=== PATIENT | male | born 1975 | race Caucasian/White ===

== ENCOUNTER 2017-06-15 02:31 | Inpatient (IN) | payer MEDICAID ==
--- NOTE | 2017-06-15 02:33 | EDPHY ---
H & P HPI/ROS: HPI CHIEF COMPLAINT: Facial swelling, pain, redness, neck swelling and pain HISTORY OF PRESENT ILLNESS: This patient is a 41-year-old male, denies having diabetes, he presents emergency room with right lateral neck swelling pain redness and drainage that appears to be in infection x3 days progressively getting worse. Additionally the patient has upper lip swelling pain and redness , that seems to stem from the nostril opening on the right. There is induration present tenderness and redness and warmth. Patient reports to me his upper lip started swelling and had facial pain this evening. Endorses fever subjectively. Chills. He decided come to the emergency room this evening due to increasing pain. Past Medical History: Hypertension Past Surgical History: No recent surgery Social History: Denies daily use of drugs alcohol tobacco products. denies IV drug use. Family History: Noncontributory ROS REVIEW OF SYSTEMS: A comprehensive 10 point review of systems is otherwise negative aside from elements mentioned in the history of present illness. Exam Constitutional triage nursing summary reviewed, vital signs reviewed, awake/ alert. Eyes normal conjunctivae and sclera, EOMI, PERRLA. HENT neck: Right lateral neck swelling and pain. Obivous cellulitis with some purulent drainage. Induration present. No fluctuance. Possible there is a deep space abscess FACE: Upper lip swelling. Indurated. Tender palpation over the right nostril opening redness and warmth. Oropharynx is no Abdirahman's but he does have poor dentition. moist mucus membranes, no epistaxis, neck supple/ no meningismus, no raccoon eyes. Respiratory clear to auscultation bilaterally, normal breath sounds, no respiratory distress, no wheezing. Cardiovascular rate normal, regular rhythm, no murmur, no edema, distal pulses normal. Gastrointestinal soft, non-tender, no rebound, no guarding, normal bowel sounds, no distension, no pulsatile mass. Genitourinary no CVA tenderness. Musculoskeletal no midline vertebral tenderness, full range of motion, no calf swelling, no tenderness of extremities, no meningismus, good pulses, neurovascularly intact. Skin cellulitis present on neck and face. Neurologic awake, alert and oriented x 3, AAOx3, moves all 4 extremities equally, motor intact, sensory intact, CN II-XII intact, normal cerebellar, normal vision, normal speech. Psychiatric normal mood/affect. Heme/Lymph/Immune no lymphadenopathy. Differential Diagnosis: Includes but is not limited to facial cellulitis, MRSA infection, strep infection, staph infection, necrotizing fasciitis, deep space neck infection, sepsis, neck abscess Medical Decision Making: Plan for this patient IV establishment with IV fluid bolus, blood cultures, lactic acid, inflammatory markers, IV dose of vancomycin. IV pain medicine. Re-evaluation: CT neck with IV contrast and CT maxillofacial with IV contrast shows extensive cellulitis of the face and neck. No fluid collection or drainable abscess. Given this patient's CT scan findings, leukocytosis, and external exam facial swelling erythema warmth and tenderness will be admitted to the hospital for facial cellulitis. IV vancomycin has been given. He declined IV Dilaudid for pain control he did receive a Percocet pill. Blood cultures been sent. As well as a wound culture of the right neck. Will consult the hospitalist service for admission. His oropharynx not swelling. He does not have any tongue swelling. Agrees on admission the hospital. Source: Patient - Medical/Surgical History Hx Asthma: No Hx Chronic Respiratory Disease: No Hx Diabetes: No Hx Cardiac Disease: No Hx Renal Disease: No Hx Cirrhosis: No Hx Alcoholism: No Hx HIV/AIDS: No Hx Splenectomy or Spleen Trauma: No Other PMH: Appendix surgery 2004, Right Thumb Surgery - Social History Smoking Status: Never smoked Constitutional: Initial Vital Signs Temperature (C) 37.8 C 06/15/17 02:35 Heart Rate 106 H 06/15/17 02:35 Respiratory Rate 16 06/15/17 02:35 Blood Pressure 153/109 H 06/15/17 02:35 O2 Sat (%) 94 06/15/17 02:35 O2 Delivery Mode Room Air Allergies/Adverse Reactions: Penicillins Allergy (Unknown, Verified 06/15/17 02:39) Home Medications: Medication Instructions Recorded Acetaminophen [Tylenol 325mg (*)] 325 mg PO DAILY PRN 06/15/17 Hydrochlorothiazide [HCTZ (*)] 25 mg PO DAILY 06/15/17 Lisinopril [Zestril 40 mg (*)] 40 mg PO DAILY 06/15/17 Medical Decision Making - Data Points Laboratory Results: Laboratory Results 06/15/17 03:00 06/15/17 03:00 Microbiology Results: MICROBIOLOGY 06/15/17 03:15 Neck - Swab Gram Stain - Final 06/15/17 03:15 Neck - Swab Wound Culture - Preliminary MRSA 06/15/17 03:15 Blood Blood Culture - Preliminary 06/15/17 03:00 Blood Blood Culture - Preliminary Medications Given: Hydrocodone Bitart/Acetaminophen ([place] 5/325) 1 - 2 tab PO Q4HRS PRN PRN Reason: Pain, Moderate Able to Take PO Stop: 06/25/17 04:31 Last Admin: 06/16/17 20:41 Dose: 2 tab Diphenhydramine HCl (Benadryl) 25 - 50 mg PO Q6HRS PRN PRN Reason: Itching Stop: 12/12/17 04:31 Last Admin: 06/15/17 08:46 Dose: 25 mg Hydrochlorothiazide (Hydrochlorothiazide) 25 mg PO DAILY [facility] Stop: 12/12/17 13:29 Last Admin: 06/16/17 09:12 Dose: 25 mg Vancomycin HCl 1.5 gm/ (Dextrose) 250 mls @ 166.667 mls/hr IV Q12H [facility] Stop: 07/15/17 15:59 Last Admin: 06/16/17 16:11 Dose: 250 mls Ketorolac Tromethamine (Toradol) 15 mg IVP Q6HRS [facility] Stop: 06/20/17 17:59 Last Admin: 06/17/17 02:02 Dose: 15 mg Lisinopril (Zestril) 40 mg PO DAILY [facility] Stop: 12/12/17 13:29 Last Admin: 06/16/17 09:12 Dose: 40 mg Lorazepam (Ativan) 0.5 - 1 mg PO Q6HRS PRN PRN Reason: Anxiety Stop: 12/12/17 05:11 Last Admin: 06/15/17 06:32 Dose: 0.5 mg Sodium Chloride ([place]) 1 spray [place] PRN PRN PRN Reason: Dry Nose Stop: 12/12/17 13:18 Last Admin: 06/15/17 13:44 Dose: 1 spr Discontinued Medications Hydrocodone Bitart/Acetaminophen ([place] 5/325) 1 tab PO EDNOW ONE Stop: 06/15/17 03:26 Last Admin: 06/15/17 03:26 Dose: 1 tab Hydromorphone HCl (Dilaudid) 1 mg IVP EDNOW ONE Stop: 06/15/17 02:58 Last Admin: 06/15/17 03:41 Dose: Not Given Sodium Chloride (Ns) 1,000 mls @ 0 mls/hr IV ONCE ONE PRN Reason: Wide Open Stop: 06/15/17 02:52 Last Admin: 06/15/17 03:26 Dose: 1,000 mls Vancomycin HCl 1 gm/ Dextrose 250 mls @ 250 mls/hr IV EDNOW ONE Stop: 06/15/17 04:29 Last Admin: 06/15/17 03:43 Dose: 250 mls Vancomycin HCl 500 mg/ (Dextrose) 100 mls @ 100 mls/hr IV ONCE ONE Stop: 06/15/17 09:29 Last Admin: 06/15/17 08:47 Dose: 100 mls Departure - Departure Disposition: [facility] Inpatient Acute Clinical Impression: Facial cellulitis, Cellulitis, neck Condition: Fair
[2017-06-15] MEDS ORDERED: VANCOMYCIN HCL/NORMAL SALINE 250 ML IV ONE (02:51)
[2017-06-15] MEDS ORDERED: NS 1,000 ML IV ONE (02:51)
[2017-06-15] MEDS ORDERED: HYDROmorphONE/DILAUDID 1 MG/ML INJ IVP ONE (02:57)
[2017-06-15 03:18] LABS: % IMMATURE GRANULYOCYTES 0.3 % (0.0-1.1); ABSOLUTE IMMATURE GRANULOCYTES 0.04 10^3/uL (0.00-0.10); ADD DIFF? NO; ADD MORPH? NO; ADD SCAN? NO; ATYPICAL LYMPHOCYTE FLAG 0 (0-99); FRAGMENT RBC FLAG 0 (0-99); HEMATOCRIT 45.3 % (40.0-51.0); HEMOGLOBIN 15.7 g/dL (13.7-17.5); LEFT SHIFT FLG 0 (0-99); LIPEMIA HEMOLYSIS FLAG 90 (0-99); MEAN CELL HEMOGLOBIN 30.4 pg (27.9-34.1); MEAN CELL HEMOGLOBIN CONCENTR. 34.7 g/dL (32.4-36.7); MEAN CELL VOLUME 87.6 fL (81.5-99.8); MEAN PLATELET VOLUME 8.9 fL (8.7-11.7); PLATELET CLUMPS FLAG 0 (0-99); PLATELET COUNT 232 10^3/uL (150-400); RED BLOOD CELL COUNT 5.17 10^6/uL (4.40-6.38); RED CELL DISTRIBUTION WIDTH 12.5 % (11.5-15.2)
[2017-06-15] MEDS ORDERED: HYDROCODONE/APAP 5/325 TAB ONE (03:22)
[2017-06-15] MEDS ORDERED: HYDROCODONE/APAP 5/325 TAB PO ONE (03:25)
[2017-06-15] MEDS ORDERED: VANCOMYCIN 1 GM in D5W 250 ML IV ONE (03:30)
[2017-06-15 03:37] LABS: ANION GAP 13 mEq/L (8-16); C-REACTIVE PROTEIN 56.4 mg/L (<10.0); CALCIUM 9.4 mg/dL (8.5-10.4); CARBON DIOXIDE 25 mEq/l (22-31); CHLORIDE 103 mEq/L (97-110); CREATININE 0.8 mg/dL (0.7-1.3); GLOMERULAR FILTRATION RATE > 60; GLUCOSE 129 mg/dL (70-100); POTASSIUM 3.7 mEq/L (3.5-5.2); SODIUM 141 mEq/L (134-144)
[2017-06-15 03:41] LABS: SEDIMENTATION RATE 10 MM/HR (0-15)
[2017-06-15] MEDS ORDERED: IOPAMIDOL (ISOVUE-300) 100 ML BTL ONE (03:44)
[2017-06-15] MEDS ORDERED: diphenhydrAMINE 25 MG CAP PO PRN (04:32)
[2017-06-15] MEDS ORDERED: ACETAMINOPHEN 325 MG TAB PO PRN (04:32)
[2017-06-15] MEDS ORDERED: ONDANSETRON 4 MG/2 ML VIAL IVP PRN (04:32)
[2017-06-15] MEDS ORDERED: NS 1,000 ML IV SCH (04:45)
[2017-06-15] MEDS ORDERED: LORazepam 0.5 MG TAB PO PRN (05:12)
--- NOTE | 2017-06-15 05:25 | PDGENHP ---
History and Physical - Chief Complaint face and neck pain/swelling - History of Present Illness Source - patient provides history and appears reliable. EMR reviewed and case discussed with ED provider. HPI - 41 yo M with pmx significant for HTN, chronic back pain with herniated lumbar disks who presents to the ED this evening with complaints of right neck pain/redness/swelling x 3 days and right facial pain/redness/swelling x 1 day. Patient denies any fevers but has had some chills at home. He denies any injury but has a hx of folliculitis and facial cellulitis multiple times in the past. on his right mid lateral neck he reports a folliculitis close to where he shaves. he has had some drainage from the neck wound. He is feeling pain and pressure under upper part of his right nare and swelling of his upper lip. He reports previous abscesses 2/2 Staph but does not recall if they were MRSA. Patient denies any tongue swelling, shortness of breath. He is on lisinopril but no other c/o edema around eyes. Patient did not seek out evaluation outpatient as he reports "he doesn't like doctors." History Information - Allergies/Home Medication List Allergies/Adverse Reactions: Penicillins Allergy (Unknown, Verified 06/15/17 02:39) Home Medications: Lisinopril/Hctz 10/12.5 mg 07/12/15 [Last Taken Unknown] I have personally reviewed and updated: family history, medical history, social history, surgical history - Past Medical History degenerative disc disease (lumbar herniated disc/chronic back pain), hypertension - Surgical History Additional surgical history: appy. right thumb - Family History Negative for: diabetes type II, CAD, hypertension - Social History Smoking Status: Never smoked Alcohol Use: Occasionally Drug Use: None Additional social history: Lives alone. COR - FULL. Patient declines to select a proxy if needed. Review of Systems Review of Systems: ROS: 10pt was reviewed & negative except for what was stated in HPI & below Constitutional: Reports: chills. Denies: fever, weakness EENMT: Reports: other (pain/swelling right nare). Denies: blurred vision, eye pain, nose congestion, sore throat Cardiac: Reports: no symptoms. Denies: chest pain, edema, palpitations Respiratory: Reports: no symptoms. Denies: cough, shortness of breath Gastrointestinal: Reports: no symptoms. Denies: vomitting, diarrhea, nausea Genitourinary: Reports: no symptoms. Denies: dysuria, hematuria Muscolosketal: Reports: back pain (chronic back pain). Denies: muscle pain Skin: Reports: other (cellulitis right neck/face) Neurological: Reports: numbness (minimal on his lip). Denies: anxiety, depressed, weakness Immunologic/Allergy: Reports: other (allergic to insect bites. ). Denies: food allergy Physical Exam Physical Exam: Selected Entries 06/15/17 02:35 Heart Rate 106 H Respiratory 16 Rate O2 Sat (%) 94 Temperature (C) 37.8 C Blood Pressure 153/109 H Mean Arterial 123 H Pressure (MAP) O2 Delivery Room Air Mode Temperature Oral Source Temp Pulse Resp BP Pulse Ox 37 C 76 18 107/68 95 06/15/17 04:00 06/15/17 04:00 06/15/17 04:00 06/15/17 04:00 06/15/17 04:00 Constitutional: no apparent distress, obese, uncomfortable Eyes: PERRL (decreased reactivity to light bilaterally but symettric), anicteric sclera, EOMI, No scleral injection Ears, Nose, Mouth, Throat: moist mucous membranes, poor dentition (fair condition), dry mucous membranes, other (right lateral neck with scabbed area erythematous. ttp. no active drainage. upper lip is edematous. pt right nare erythematous/edematous. ) Cardiovascular: regular rate and rhythym, no murmur, rub, or gallop, No systolic murmur, No edema Peripheral Pulses: 2+: dorsalis-pedis (R), dorsalis-pedis (L) Respiratory: no respiratory distress, no rales or rhonchi, clear to auscultation Gastrointestinal: normoactive bowel sounds, soft, non-tender abdomen, no palpable masses, other (obese) Genitourinary: no bladder tenderness, No ogden in urethra Skin: warm, normal color, no fluctuance, erythema, induration, other (right medial AC with indurated/circular area pt identifies as musquito bite. nonfluctuant.) Musculoskeletal: full muscle strength, no muscle tenderness, other (moves all extremities. sits up independently) Neurologic: AAOx3, sensation intact bilaterally, other (grossly nonfocal exam. ) , No weakness Psychiatric: not encephalopathic, thought process linear, anxious, flat affect, other (patient minimizes need for outpatient medical care but understands he should seek earlier intervention if cellulitis occurs again), No depressed, No poor insight, No poor judgement, No poor memory Lab Data & Imaging Review 06/15/17 03:00 06/15/17 03:00 WBC 15.35 10^3/uL (3.80-9.50) H 06/15/17 03:00 RBC 5.17 10^6/uL (4.40-6.38) 06/15/17 03:00 Hgb 15.7 g/dL (13.7-17.5) 06/15/17 03:00 Hct 45.3 % (40.0-51.0) 06/15/17 03:00 MCV 87.6 fL (81.5-99.8) 06/15/17 03:00 MCH 30.4 pg (27.9-34.1) 06/15/17 03:00 MCHC 34.7 g/dL (32.4-36.7) 06/15/17 03:00 RDW 12.5 % (11.5-15.2) 06/15/17 03:00 Plt Count 232 10^3/uL (150-400) 06/15/17 03:00 MPV 8.9 fL (8.7-11.7) 06/15/17 03:00 Neut % (Auto) 77.7 % (39.3-74.2) H 06/15/17 03:00 Lymph % (Auto) 15.1 % (15.0-45.0) 06/15/17 03:00 [place] % (Auto) 6.3 % (4.5-13.0) 06/15/17 03:00 Eos % (Auto) 0.3 % (0.6-7.6) L 06/15/17 03:00 Baso % (Auto) 0.3 % (0.3-1.7) 06/15/17 03:00 Nucleat RBC Rel Count 0.0 % (0.0-0.2) 06/15/17 03:00 Absolute Neuts (auto) 11.92 10^3/uL (1.70-6.50) H 06/15/17 03:00 Absolute Lymphs (auto) 2.32 10^3/uL (1.00-3.00) 06/15/17 03:00 Absolute Monos (auto) 0.97 10^3/uL (0.30-0.80) H 06/15/17 03:00 Absolute Eos (auto) 0.05 10^3/uL (0.03-0.40) 06/15/17 03:00 Absolute Basos (auto) 0.05 10^3/uL (0.02-0.10) 06/15/17 03:00 Absolute Nucleated RBC 0.00 10^3/uL (0-0.01) 06/15/17 03:00 Immature Gran % 0.3 % (0.0-1.1) 06/15/17 03:00 Immature Gran # 0.04 10^3/uL (0.00-0.10) 06/15/17 03:00 ESR 10 MM/HR (0-15) 06/15/17 03:00 VBG Lactic Acid 1.4 mmol/L (0.7-2.1) 06/15/17 03:00 Sodium 141 mEq/L (134-144) 06/15/17 03:00 Potassium 3.7 mEq/L (3.5-5.2) 06/15/17 03:00 Chloride 103 mEq/L (97-110) 06/15/17 03:00 Carbon Dioxide 25 mEq/l (22-31) 06/15/17 03:00 Anion Gap 13 mEq/L (8-16) 06/15/17 03:00 BUN 10 mg/dL (7-23) 06/15/17 03:00 Creatinine 0.8 mg/dL (0.7-1.3) 06/15/17 03:00 Estimated GFR > 60 06/15/17 03:00 Glucose 129 mg/dL (70-100) H 06/15/17 03:00 Calcium 9.4 mg/dL (8.5-10.4) 06/15/17 03:00 C-Reactive Protein 56.4 mg/L (<10.0) H 06/15/17 03:00 Imaging Review: image and preliminary report reviewed myself. CT head/neck - right facial/cervical cellulitis. no definite abscess. - focal area base of nose possibly developing abscess. - adenopathy - no evidence of osteo. Assessment & Plan Assessment: Pleasant 41 yo M with history of HTN presents with 3 days right neck pain/ swelling and folliculitis and 1 day history of lip swelling and facial pain/ swelling. #Cellulitis, neck (Acute) - appears patient has a draining lesion right neck. pt reports history of folliculitis previously. He knows wounds previously grew staph several years ago but cannot recall if MRSA. continue with vancomycin. no evidence of abscess/fluid collection on CT neck #Facial cellulitis (Acute) - possible developing abscess right nare with extension inferiorly with notable lip swelling. continue vancomycin as noted above. #SIRS/sepsis - pt with leukocytosis, tachycardia upon arrival. lactate WNL. elevated CRP. BPs elevated. blood cultures obtained before vancomycin. #acute pain - norco, morphine, ativan prn. #lip swelling - most likely 2/2 acute infectious process however will hold patient's lisinopril at this time. #hyperglycemia - pt denies hx of DM. unsure if this is fasting lab. will repeat AM bmp and further evaluate if indicated. #benign essential HTN - patient BPs elevated. he admits he has missed several doses as he was out of town recently. Patient #obesity - mobilize. recommend lifestyle modifications and closer follow up with PCP. FEN - IVF hydration. advance diet as tolerated. electrolyte replacement prn. PPX - SCDs. anticoagulation starting tomorrow should any surgical intervention be required. COR - FULL. Dispo - Patient admitted to Inpatient status given severity of infection, sepsis criteria anticipate patient will require several days of IV antibiotics. Patient also does not have PCP or regular medical follow up. I encouraged him to seek a PCP and establish care for regular follow up and visits early in process of cellulitis. Consults - ID.
[2017-06-15] MEDS ORDERED: hydrALAZINE 20 MG/ML VIAL IVP PRN (05:42)
[2017-06-15] MEDS: HYDROCODONE/APAP 5/325 TAB PO PRN ×3 (06:32→22:20)
[2017-06-15] MEDS ORDERED: VANCOMYCIN 500 MG in D5W 100 ML IV ONE (08:30)
--- NOTE | 2017-06-15 11:00 | PDMN ---
Medical Necessity Medical necessity: est los>2mn for R neck cellulitis w/draining wound, lip swelling and facial pain/swelling with possible developing abscess R nare, SIRS / sepsis, and hyperglycemia;; requires several days of IV abx; comorbid obesity , and htn; per order and H&P 06/15/17
--- NOTE | 2017-06-15 11:05 | GCON ---
[f rep st] CONSULTATION INFECTIOUS DISEASES CONSULTATION REFERRING PHYSICIAN: Anai Soto MD REASON FOR CONSULTATION: Facial and neck cellulitis, possible abscess. HISTORY OF PRESENT ILLNESS: The patient is a 41-year-old male, who presented to [facility] Emergency Department on the [employer] hours of 06/15/2017. The patient relates having right lateral neck swelling and focal pain with redness and drainage for the last 3 days. It has been pro gressively worsening. The patient also notes symmetric upper lip pain and swelling. No redness. e patient notes that this seems to come from the right naris. He also notes subjective fevers. He a lso notes that he has had something similar in the past when he was 16 years old. He states it was S taphylococcus at that point. PAST MEDICAL HISTORY: Hypertension. PAST SURGICAL HISTORY: Denies. SOCIAL HISTORY: The patient denies any tobacco, alcohol or drug use. FAMILY HISTORY: Reviewed, but noncontributory. MEDICATIONS: ANTIBIOTICS: Vancomycin. ALLERGIES: The patient is allergic to penicillins. REVIEW OF SYSTEMS: Other than that detailed above in history of present illness, a comprehensive 10- system review is negative. PHYSICAL EXAMINATION: VITAL SIGNS: Temperature maximum is 37.8, temperature current is 36.9, heart rate is 81, respiratory rate is 18, blood pressure is 141/100. GENERAL: The patient is an overweigh t male, in no acute distress. Nontoxic in appearance. Alert and oriented x3. Pleasant in demeanor. HEENT: Normocephalic for age. Atraumatic. No scleral icterus. No oral lesion. No drainage from nares. The patient does have symmetric edema of the upper lip. There is some induration around the nares on the right. No fluctuance. The patient has a second area on the right lateral aspect of th e neck, which is erythematous and indurated with no fluctuance. No drainage noted. NECK: Supple. No meningismus. LUNGS: Clear to auscultation bilaterally with good effort. HEART: Regular rate an d rhythm. No murmur, rub, or gallop noted. No significant peripheral edema. SKIN: Warm and dry to the touch. No rash is noted. Lesions as described above. MUSCULOSKELETAL: No muscle belly tender ness is noted. No joint line effusion or arthritis is seen. NEURO: Cranial nerves 2-12 seem to be intact. Peripheral sensation seems intact in all extremities. LABORATORY DATA: The patient has a CBC dated 06/15/2017 shows white blood cell count of 15.35, hemog lobin of 15.7, hematocrit 45.3, and a platelet count of 232. Differential is left shifted with 78% s egmented neutrophils. Serum chemistries on 06/15/2017 shows sodium 141, potassium 3.7, chloride 103, bicarb 25, BUN of 10, creatinine 0.8. C-reactive protein is elevated at 56.4. MICROBIOLOGIC DATA: The patient has blood cultures dated 06/15/2017 show no growth to date. The pat ient has a neck swab dated 06/15/2017. Gram stain shows rare gram-positive cocci. Cultures no growt h to date. RADIOLOGIC DATA: The patient has a neck CT with a facial CT of 06/15/2017. Results show right facia l cervical cellulitis with no definitive drainable abscess. ASSESSMENT: Right facial and neck cellulitis. No abscess seen. Likely secondary to Staphylococcus. GPCs on Gram stain of swab of the neck lesion. We will continue with vancomycin monotherapy. Give n this is skin and soft tissue only, trough levels only need to be 10-15, not 15-20. This was discus sed with pharmacy and amended. The patient still is appropriately dosed at 1.5 g IV q.12 hours. We will follow trough levels. Follow clinical course. PLAN: Continue vancomycin monotherapy at 1.5 g IV q.12 hours. We will follow daily for clinical upd ate. /[id number]/MODL
[2017-06-15] MEDS ORDERED: SODIUM CL NASAL 45 ML BTL EACHNARE PRN (13:19)
[2017-06-15] MEDS: LISINOPRIL 40 MG TAB PO SCH (13:42)
[2017-06-15] MEDS: HYDROCHLOROTHIAZIDE 25 MG TAB PO SCH (13:43)
--- NOTE | 2017-06-15 15:06 | HOSPPROG ---
Hospitalist Progress Note Assessment/Plan: 41 yo M with hx of HTN, chronic back and neck pain presenting with facial and neck cellulitis # facial and neck cellulitis: extensive cellulitis but no clear abscess noted on imaging of face and neck. Continued on vancomycin for now, appreciate ID consult. Blood cultures with ngtd, cultures from swab pending. Airway intact and swallowing well. # leukocytosis: significantly elevated in setting of above, will continue to trend # hyperglycemia: likely stress response, will trend # htn: continue hctz/lisinopril # dispo: IP status, will need > 48 hours stay for eval/mgmt of above Patient new to my care. Old records reviewed and summarized as above Subjective: no significant overnight events, patient notes he is feeling a bit better today, still significantly swollen Objective: Vital Signs Temp Pulse Resp BP Pulse Ox 36.9 C 81 18 142/97 H 93 06/15/17 08:15 06/15/17 08:15 06/15/17 08:15 06/15/17 13:43 06/15/17 08:15 06/14/17 06/15/17 06/16/17 05:59 05:59 05:59 Intake Total 1350 Balance 1350 awake alert anicteric op clear, upper lip extremely edematous no stridor rrr no mrg cta b soft nt nd no cce warm dry well perfused oriented appropriate ICD10 Worksheet Patient Problems: Problems Problem Status Onset Facial cellulitis Acute Cellulitis, neck Acute
--- NOTE | 2017-06-15 15:09 | ASMTCMCOM ---
CM Note CM Note Notes: Pt admitted for facial/neck cellulitis, currently on IV Vanco. CM will continue to follow for d/c needs. Date Signed: 06/15/2017 03:09 PM Electronically Signed By:LISA Rivers
[2017-06-15] MEDS: VANCOMYCIN 1.5 GM in D5W 250 ML IV SCH (16:05)
[2017-06-15] MEDS: KETOROLAC 15 MG/1 ML SDV IVP SCH ×2 (17:50→22:19)
[2017-06-16] MEDS: KETOROLAC 15 MG/1 ML SDV IVP SCH ×3 (04:46→18:05)
[2017-06-16] MEDS: HYDROCODONE/APAP 5/325 TAB PO PRN ×4 (04:48→20:41)
[2017-06-16] MEDS: VANCOMYCIN 1.5 GM in D5W 250 ML IV SCH ×2 (04:48→16:11)
[2017-06-16 05:33] LABS: % IMMATURE GRANULYOCYTES 0.5 % (0.0-1.1); ABSOLUTE IMMATURE GRANULOCYTES 0.07 10^3/uL (0.00-0.10); ADD DIFF? NO; ADD MORPH? NO; ADD SCAN? NO; ATYPICAL LYMPHOCYTE FLAG 0 (0-99); FRAGMENT RBC FLAG 0 (0-99); HEMATOCRIT 44.5 % (40.0-51.0); HEMOGLOBIN 15.2 g/dL (13.7-17.5); LEFT SHIFT FLG 0 (0-99); LIPEMIA HEMOLYSIS FLAG 90 (0-99); MEAN CELL HEMOGLOBIN 30.2 pg (27.9-34.1); MEAN CELL HEMOGLOBIN CONCENTR. 34.2 g/dL (32.4-36.7); MEAN CELL VOLUME 88.3 fL (81.5-99.8); MEAN PLATELET VOLUME 8.8 fL (8.7-11.7); PLATELET CLUMPS FLAG 10 (0-99); PLATELET COUNT 214 10^3/uL (150-400); RED BLOOD CELL COUNT 5.04 10^6/uL (4.40-6.38); RED CELL DISTRIBUTION WIDTH 12.5 % (11.5-15.2)
[2017-06-16 05:56] LABS: ANION GAP 12 mEq/L (8-16); CALCIUM 8.8 mg/dL (8.5-10.4); CARBON DIOXIDE 27 mEq/l (22-31); CHLORIDE 100 mEq/L (97-110); CREATININE 0.8 mg/dL (0.7-1.3); GLOMERULAR FILTRATION RATE > 60; GLUCOSE 120 mg/dL (70-100); POTASSIUM 3.9 mEq/L (3.5-5.2); SODIUM 139 mEq/L (134-144)
[2017-06-16] MEDS: HYDROCHLOROTHIAZIDE 25 MG TAB PO SCH (09:12)
[2017-06-16] MEDS: LISINOPRIL 40 MG TAB PO SCH (09:12)
--- NOTE | 2017-06-16 15:27 | PCMIDPN ---
Assessment/Plan: # Right sided Facial cellulitis/abscess: SA on wound cx culture, reportedly improved. WBC improving. Blood cx 06/15 NGTD --patient strongly desires dc as soon as possible; re-assess tomorrow for possible stability for discharge, hopeful SA sensi's were be available --continue vancomycin, vanco T pending # H/o MRSA meds Subjective: patient reports significant improvement and wants to go home Objective: Vital Signs Temp Pulse Resp BP Pulse Ox 36.8 C 87 16 116/72 93 06/16/17 12:00 06/16/17 12:00 06/16/17 12:00 06/16/17 12:00 06/16/17 12:00 Laboratory Results 06/16/17 04:45 06/16/17 04:45 06/15/17 06/16/17 06/17/17 05:59 05:59 05:59 Intake Total 1350 Balance 1350 ESR 10 MM/HR (0-15) 06/15/17 03:00 C-Reactive Protein 56.4 mg/L (<10.0) H 06/15/17 03:00 - Physical Exam General Appearance: alert, no apparent distress, obese EENT: other (R face/upper lip swelling, R neck/submental erythema with purulent drainage) Respiratory: lungs clear, No accessory muscle use Neck: supple Cardiac/Chest: regular rate, rhythm, No systolic murmur Abdomen: non-tender, soft Skin: No rash Neuro/Psych: alert, normal mood/affect, oriented x 3 ICD10 Worksheet Patient Problems: Problems Problem Status Onset Cellulitis, neck Acute Facial cellulitis Acute
--- NOTE | 2017-06-16 18:29 | HOSPPROG ---
Hospitalist Progress Note Assessment/Plan: Assessment: 41 yo M p/w MRSA facial/neck cellulitis and abscess Plan: # facial and neck cellulitis and abscess: extensive cellulitis and although no drainable abscess on CT, area is draining pus today - swab positive for MRSA - cont Vanco - d/w Dr. Sewell, she will adjust abx based on sensitivities, plan for DC tomorrow per patient request, remains clinically unresolved today and requiring ongoing monitoring # hyperglycemia: likely stress response, will trend, obtain A1c # htn: continue hctz/lisinopril diet: regular ppx: low risk, SCDs code: full dispo: ADD 06/17, pending sensitivities for Abx selection, clinically unresolved today Subjective: Patient reports ongoing right facial pain Objective: Vital Signs Temp Pulse Resp BP Pulse Ox 36.8 C 84 14 116/72 94 06/16/17 12:00 06/16/17 16:00 06/16/17 16:00 06/16/17 16:00 06/16/17 16:00 Laboratory Results 06/16/17 04:45 06/16/17 04:45 06/15/17 06/16/17 06/17/17 05:59 05:59 05:59 Intake Total 1350 1500 Balance 1350 1500 - Pending Discharge Pending Discharge Within 24 Hours: Yes Pending Discharge Date: 06/17/17 Pending Discharge Time: 11:00 - Physical Exam Constitutional: no apparent distress, chronically ill appearing, obese, uncomfortable Ears, Nose, Mouth, Throat: moist mucous membranes, hearing normal, other ( Swollen upper lip, no evidence of ulceration on the mucosal membranes) Cardiovascular: regular rate and rhythym, no murmur, rub, or gallop, No edema Respiratory: no respiratory distress, no rales or rhonchi, clear to auscultation Gastrointestinal: normoactive bowel sounds, soft, non-tender abdomen, no palpable masses Skin: other (Erythema over the right neck with central ulceration and pustulant drainage, induration, soft tissue swelling, tenderness) Neurologic: AAOx3, sensation intact bilaterally, No weakness Psychiatric: interacting appropriately, not anxious, not encephalopathic, thought process linear ICD10 Worksheet Patient Problems: Problems Problem Status Onset Cellulitis, neck Acute Facial cellulitis Acute
[2017-06-16 20:06] LABS: HEMOGLOBIN A1C 5.3 % (4.0-6.0)
[2017-06-16 23:58] VITALS: RESP 16
[2017-06-17] MEDS: KETOROLAC 15 MG/1 ML SDV IVP SCH ×3 (02:02→12:04)
[2017-06-17] MEDS: VANCOMYCIN 1.5 GM in D5W 250 ML IV SCH ×2 (03:25→16:00)
[2017-06-17] MEDS: HYDROCODONE/APAP 5/325 TAB PO PRN ×3 (03:26→16:52)
[2017-06-17 05:22] LABS: % IMMATURE GRANULYOCYTES 0.4 % (0.0-1.1); ABSOLUTE IMMATURE GRANULOCYTES 0.05 10^3/uL (0.00-0.10); ADD DIFF? NO; ADD MORPH? NO; ADD SCAN? NO; ATYPICAL LYMPHOCYTE FLAG 10 (0-99); FRAGMENT RBC FLAG 0 (0-99); HEMATOCRIT 46.1 % (40.0-51.0); HEMOGLOBIN 15.9 g/dL (13.7-17.5); LEFT SHIFT FLG 0 (0-99); LIPEMIA HEMOLYSIS FLAG 90 (0-99); MEAN CELL HEMOGLOBIN 30.5 pg (27.9-34.1); MEAN CELL HEMOGLOBIN CONCENTR. 34.5 g/dL (32.4-36.7); MEAN CELL VOLUME 88.3 fL (81.5-99.8); MEAN PLATELET VOLUME 8.9 fL (8.7-11.7); PLATELET CLUMPS FLAG 0 (0-99); PLATELET COUNT 265 10^3/uL (150-400); RED BLOOD CELL COUNT 5.22 10^6/uL (4.40-6.38); RED CELL DISTRIBUTION WIDTH 12.1 % (11.5-15.2)
[2017-06-17 05:32] LABS: ALANINE AMINOTRANSFERASE 46 IU/L (21-72); ALKALINE PHOSPHATASE 96 IU/L (38-126); ANION GAP 15 mEq/L (8-16); ASPARTATE AMINOTRANSFERASE 23 IU/L (17-59); BILIRUBIN,TOTAL 0.5 mg/dL (0.1-1.4); CALCIUM 8.9 mg/dL (8.5-10.4); CARBON DIOXIDE 23 mEq/l (22-31); CHLORIDE 101 mEq/L (97-110); CREATININE 0.8 mg/dL (0.7-1.3); GLOMERULAR FILTRATION RATE > 60; GLUCOSE 130 mg/dL (70-100); POTASSIUM 4.1 mEq/L (3.5-5.2); SODIUM 139 mEq/L (134-144)
[2017-06-17] MEDS: HYDROCHLOROTHIAZIDE 25 MG TAB PO SCH (08:39)
[2017-06-17] MEDS: LISINOPRIL 40 MG TAB PO SCH (08:39)
--- NOTE | 2017-06-17 09:38 | PCMIDPN ---
Assessment/Plan: # MRSA Right sided Facial cellulitis/abscess: WBC stable. Afebrile Blood cx NGTD --DC after IV antibiotic dose this afternoon, then start Bactrim DS 2 PO BID x 10 days supply, follow up with me 06/23/17 at 4pm --discuss indications for returning to the emergency room. meds VANCOMYCIN 1.5GM iv Q12, #[address] Peralta Subjective: patient feels less facial swelling today wants to go home Objective: Vital Signs Temp Pulse Resp BP Pulse Ox 37.1 C 90 16 128/78 H 93 06/17/17 08:00 06/17/17 08:00 06/17/17 08:00 06/17/17 08:00 06/17/17 08:00 Laboratory Results 06/17/17 05:05 06/17/17 05:05 06/16/17 06/17/17 06/18/17 05:59 05:59 05:59 Intake Total 2000 Balance 2000 ESR 10 MM/HR (0-15) 06/15/17 03:00 C-Reactive Protein 56.4 mg/L (<10.0) H 06/15/17 03:00 General: Obese male no acute distress HEENT: Right upper lip swelling with phlegmon on inner lip. Mild tenderness to palpation, fair dentition; right neck/lateral submental area persistent hard area/phlegmon with purulent drainage, erythema immediately surrounding, no streaking the Cardiovascular: RRR no murmur Chest: Breathing easy, decreased breath sounds in the bases due to poor inspiratory effort ICD10 Worksheet Patient Problems: Problems Problem Status Onset Cellulitis, neck Acute Facial cellulitis Acute Methicillin resistant Staphylococcus aureus infection Acute ~06/15/17
--- NOTE | 2017-06-17 14:55 | ASMTCMCOM ---
CM Note CM Note Notes: Pt medically stable for d/c on oral antibiotics, no CM d/c needs identified. Date Signed: 06/17/2017 02:54 PM Electronically Signed By:LISA Rivers
[2017-06-17 16:10] VITALS: BP 125/82; PULSE 84; TEMP 98.4; O2SAT 94
--- NOTE | 2017-06-17 19:59 | PDDCSUM ---
Discharge Summary Discharge Summary: DISCHARGE SUMMARY FOLLOW-UP ITEMS: Follow-up physical exam of neck and mouth infectious Disease appointment next week DATE OF ADMISSION: 06/15/2017 DATE OF DISCHARGE: 06/17/2017 DISCHARGE DIAGNOSES: 1. Acute facial and neck cellulitis with abscess 2. Acute hyperglycemia 3. Chronic hypertension CONSULTATIONS: Infectious Disease PROCEDURES / IMAGING: CT of the head and neck demonstrating no drainable abscess, extensive cellulitis CHIEF COMPLAINT: Acute neck and lip pain SUBJECTIVE: Patient is feeling well at time discharge, she continues to have some swelling of his right upper lip as well as right neck, but the pain has subsided PHYSICAL EXAM ON DISCHARGE: Systolic blood pressure 110, heart rate 80, afebrile overnight, satting well on room air, continues to have a healing pustulant area on the mucosal surface of his right upper lip, with some right upper lip edema, no tenderness, induration over the right anterior neck without overt fluctuance, ulcerated an slightly pustulant area LABS ON DISCHARGE: White blood cell count 87281, hemoglobin 15.9 HOSPITAL COURSE BY PROBLEM: The patient presented with acute cellulitis of the right neck and right upper lip, unclear whether these are 2 contiguous processes versus 2 separate processes in the setting of mucosal abrasion and a cut from shaving. The patient experienced some acute hyperglycemia most likely secondary to stress response in the setting of infection. The patient did test positive for MRSA, and he was treated with IV vancomycin. The patient's white blood cell count did down trend somewhat and his pain did improve, resulting in transition to Bactrim double strength 2 tabs twice daily, and rapid outpatient follow-up. The patient was instructed to return to the emergency department for repeat CT imaging if he experiences clinical worsening, and he will follow up with Dr. Minna Sewell next Thursday. He was continued on his home HTN Rx. DISCHARGE MEDICATIONS: Please see official discharge medication reconciliation sheet in chart , Bactrim double strength 2 tabs twice daily, as-needed Percocet. DISCHARGE INSTRUCTIONS: Please follow up in the Infectious Disease Clinic as scheduled.
== END 2017-06-17 18:11 | disposition home or self-care (01) | DRG 603 ==
LOC: F3N 05:49
PROVIDERS: ADMIT Family Medicine; ATTEND Family Medicine
DX: L03.211 Cellulitis of face (principal); L03.221 Cellulitis of neck; L02.01 Cutaneous abscess of face; L02.11 Cutaneous abscess of neck; B95.62 Methicillin resistant Staphylococcus aureus infection as the cause of diseases classified elsewhere; R73.9 Hyperglycemia, unspecified; I10 Essential (primary) hypertension; Z88.0 Allergy status to penicillin; Z83.3 Family history of diabetes mellitus
CPT/HCPCS: 96365; J1170; J1885; J3370; Q9967

== ENCOUNTER 2018-06-12 21:09 | Emergency (ER) | payer MEDICAID ==
[2018-06-12] MEDS ORDERED: VANCOMYCIN HCL/NORMAL SALINE 250 ML IV ONE (21:55)
[2018-06-12] MEDS ORDERED: SULFAMET/TMP DS PREPACK#2 BTL TAKEHOME ONE (21:55)
[2018-06-12] MEDS ORDERED: SULFAMETHOX/TMP 800/160 MG 1 TAB PO ONE (21:55)
[2018-06-12 22:22] LABS: PLATELET COUNT 240 10^3/uL (150-400)
[2018-06-12] MEDS ORDERED: OXYCODONE/APAP 5/325MG PREPACK#4 BTL TAKEHOME ONE (22:33)
--- NOTE | 2018-06-12 22:33 | EDPHY ---
H & P Stated Complaint: right calf infection Time Seen by Provider: 06/12/18 21:38 HPI/ROS: Chief complaint: Right calf infection History of present illness: This is a 42-year-old male who presents to the emergency department concerned he has a right calf infection. Patient states he developed a small lesion a few days ago. He popped it and pus came out. However he has developed increasing pain, redness and swelling since then. He saw Dr. Whitfield yesterday who placed him on Keflex which he has been taking. However symptoms have worsened. He denies fevers. He denies other lesions. He does have a history of a MRSA cellulitis to other parts of the body. Review of systems: A 10 point review of systems was obtained and other than described above was negative - Personal History Current Tetanus Diphtheria and Acellular Pertussis (TDAP): Yes - Medical/Surgical History Hx Asthma: No Hx Chronic Respiratory Disease: No Hx Diabetes: No Hx Cardiac Disease: No Hx Renal Disease: No Hx Cirrhosis: No Hx Alcoholism: No Hx HIV/AIDS: No Hx Splenectomy or Spleen Trauma: No Other PMH: Appendix surgery 2004, Right Thumb Surgery - Social History Smoking Status: Never smoked - Physical Exam Exam: General Appearance: Alert, nontoxic. Eyes: Pupils equal and round no injection. Respiratory: Chest is non tender, lungs are clear to auscultation. Cardiac: regular rate and rhythm Gastrointestinal: Abdomen is soft and non tender, no masses, bowel sounds normal. Musculoskeletal: Patient is ambulating on his own. Skin: Patient has a large lesion to the right calf with pustular discharge. No induration or fluctuance to suggest drainable lesion. There is surrounding erythema and edema. It is not circumferential. There is no red streaking. Constitutional: Initial Vital Signs Temperature (C) 37.6 C 06/12/18 21:20 Heart Rate 108 H 06/12/18 21:20 Respiratory Rate 20 06/12/18 21:20 Blood Pressure 153/95 H 06/12/18 21:20 O2 Sat (%) 95 06/12/18 21:20 O2 Delivery Mode Room Air Allergies/Adverse Reactions: Penicillins Allergy (Unknown, Verified 06/12/18 21:20) Home Medications: Medication Instructions Recorded Acetaminophen [Tylenol 325mg (*)] 325 mg PO DAILY PRN 06/15/17 Hydrochlorothiazide [HCTZ (*)] 25 mg PO DAILY 06/15/17 Lisinopril [Zestril 40 mg (*)] 40 mg PO DAILY 06/15/17 Sulfamethox/Tmp 800/160 mg 2 tab PO BID #28 tab 06/17/17 [Bactrim Ds] hydrOXYzine HCL [hydrOXYzine HCL 25 mg PO Q6 PRN #40 tab 06/17/17 (RX)] oxyCODONE/APAP 5/325 [Percocet 1 tab PO Q4 PRN #20 tab 06/17/17 5/325 (*)] Sulfamethox/Tmp 800/160 mg 2 tab PO BID 10 Days tab 06/12/18 [Bactrim Ds] Medical Decision Making ED Course/Re-evaluation: Patient is discussed with my secondary supervising physician Dr. Aquiles Joyner. Patient presents to the emergency department with an obvious cellulitis to his right calf. He is nontoxic. He has been on Keflex. Review of records show he has had a MRSA cellulitis previously treated with vancomycin and Bactrim DS 2 tablets twice daily. He is given a dose of vancomycin in the emergency department. He is started on Bactrim. He is to continue the Keflex. Home care is discussed including wound care. He is asked to follow up with her primary care doctor for recheck. Strict return precautions are given. The patient voiced understanding and agreement with plan. Differential Diagnosis: Included but not limited to erysipelas, cellulitis, abscess, lymphangitis, unlikely necrotizing fasciitis - Data Points Laboratory Results: Laboratory Results 06/12/18 22:05 06/12/18 22:05 06/12/18 06/12/18 22:05 22:05 WBC 12.43 10^3/uL H 10^3/uL (3.80-9.50) RBC 5.42 10^6/uL 10^6/uL (4.40-6.38) Hgb 15.8 g/dL g/dL (13.7-17.5) Hct 47.0 % % (40.0-51.0) MCV 86.7 fL fL (81.5-99.8) MCH 29.2 pg pg (27.9-34.1) MCHC 33.6 g/dL g/dL (32.4-36.7) RDW 12.7 % % (11.5-15.2) Plt Count 240 10^3/uL 10^3/uL (150-400) MPV 9.0 fL fL (8.7-11.7) Neut % (Auto) 75.0 % H % (39.3-74.2) Lymph % (Auto) 17.1 % % (15.0-45.0) Duc[place]ne % (Auto) 5.6 % % (4.5-13.0) Eos % (Auto) 1.5 % % (0.6-7.6) Baso % (Auto) 0.5 % % (0.3-1.7) Nucleat RBC Rel Count 0.0 % % (0.0-0.2) Absolute Neuts (auto) 9.32 10^3/uL H 10^3/uL (1.70-6.50) Absolute Lymphs (auto) 2.12 10^3/uL 10^3/uL (1.00-3.00) Absolute Monos (auto) 0.70 10^3/uL 10^3/uL (0.30-0.80) Absolute Eos (auto) 0.19 10^3/uL 10^3/uL (0.03-0.40) Absolute Basos (auto) 0.06 10^3/uL 10^3/uL (0.02-0.10) Absolute Nucleated RBC 0.00 10^3/uL 10^3/uL (0-0.01) Immature Gran % 0.3 % % (0.0-1.1) Immature Gran # 0.04 10^3/uL 10^3/uL (0.00-0.10) Sodium 138 mEq/L mEq/L (135-145) Potassium 4.0 mEq/L mEq/L (3.3-5.0) Chloride 104 mEq/L mEq/L (97-110) Carbon Dioxide 21 mEq/l L mEq/l (22-31) Anion Gap 13 mEq/L mEq/L (6-14) BUN 11 mg/dL mg/dL (7-23) Creatinine 0.7 mg/dL mg/dL (0.7-1.3) Estimated GFR > 60 Glucose 113 mg/dL H mg/dL (70-100) Calcium 9.1 mg/dL mg/dL (8.5-10.4) Medications Given: Discontinued Medications Vancomycin/Sodium Chloride (Vancomycin 1 Gm (Premix)) 250 mls @ 250 mls/hr IV EDNOW ONE PRN Reason: Protocol Stop: 06/12/18 22:54 Last Admin: 06/12/18 22:06 Dose: 250 mls Oxycodone/Acetaminophen (Percocet 5/325mg Prepack#4) 1 btl TAKEHOME EDNOW ONE Stop: 06/12/18 22:34 Last Admin: 06/12/18 23:15 Dose: 1 btl Trimethoprim/Sulfamethoxazole (Bactrim Ds Prepack#2) 1 btl TAKEHOME EDNOW ONE Stop: 06/12/18 21:56 Last Admin: 06/12/18 23:15 Dose: 1 btl Trimethoprim/Sulfamethoxazole (Bactrim Ds) 1 ea PO EDNOW ONE PRN Reason: Protocol Stop: 06/12/18 21:56 Last Admin: 06/12/18 22:06 Dose: 1 ea Departure - Departure Disposition: Home, Routine, Self-Care Clinical Impression: Cellulitis, leg Qualifiers: Laterality: right Qualified Code(s): L03.115 - Cellulitis of right lower limb Condition: Good Instructions: Sulfamethoxazole/Trimethoprim (By mouth), Oxycodone/ Acetaminophen (By mouth), Cellulitis (ED) Additional Instructions: Follow-up with a primary care doctor next week for recheck Continue the Keflex you are taking Take the Bactrim as well If symptoms worsen or new symptoms develop return to the emergency room for recheck Referrals: NONE *PRIMARY CARE P,. [Primary Care Provider] - As per Instructions [facility],. [Clinic] - As per Instructions Prescriptions: Sulfamethox/Tmp 800/160 mg [Bactrim Ds] 2 tab PO BID 10 Days tab
[2018-06-12 23:32] VITALS: BP 136/99
== END 2018-06-12 23:25 | disposition home or self-care (01) ==
DX: L03.115 Cellulitis of right lower limb (principal)
CPT/HCPCS: 96365; J3370